=== PATIENT | female | born 1965 | race African-American/Black ===

== ENCOUNTER 2024-02-12 00:47 | Emergency (ER) | payer BC ==
[2024-02-12] MEDS ORDERED: methocarbamoL 500 MG TAB ONE (01:54)
[2024-02-12] MEDS ORDERED: KETOROLAC 30 MG/ML INJ ONE (01:54)
[2024-02-12] MEDS ORDERED: ACETAMINOPHEN 500 MG TAB ONE (01:54)
[2024-02-12 01:59] LABS: Absolute Basophils 0.1 K/uL (0-0.5); Absolute Eosinophils 0.1 K/uL (0-0.5); Absolute Lymphocytes (CBC) 2.3 K/uL (0.7-4.9); Absolute Monocytes 0.7 K/uL (0.1-1.3); Absolute Neutrophil 5.7 K/uL (1.8-8.0); Basophils % 0.7 % (0-1.3); Eosinophils % 1.3 % (0-4.4); Hemoglobin 10.4 g/dL (12.0-15.0); Lymphocytes % 26.2 % (15.3-44.8); MCH 28.5 pg (27.0-35.0); MCHC 33.6 g/dL (32.0-36.0); MCV 84.6 fL (80-100); MPV 7.3 fL (7.6-11.3); Monocytes % 8.2 % (3.3-12.3); Neutrophils % 63.6 % (41.7-73.7); Platelets 348 thou/uL (152-406); RBC Red Blood Cell Count 3.66 M/uL (3.86-4.86); Red Cell Distribution Width 13.8 % (12.1-15.2)
[2024-02-12 02:16] LABS: Anion Gap 7.9 mEq/L (5.0-15.0); Potassium 3.9 mEq/L (3.5-5.1); Troponin High Sensitivity 4.7 pg/mL (<58.9)
--- NOTE | 2024-02-12 02:29 | EDPHYS ---
Physician Documentation [facility] Name: Seble Chavarria Age: 58 yrs Sex: Female : 1965 Arrival Date: 02/12/2024 Time: 00:47 Bed 15 Private MD: ED Physician Sedrick Triana HPI: 02/11 01:08 This 58 yrs old Black Female presents to ER via Unassigned with complaints of Chest ec2 Pain, Neck and Upper Back Pain. 01:08 Patient arrives today for upper chest wall pain as well as neck and back pain. Patient ec2 reportedly has been having symptom onset for several days, worse with movements, states that she suspect is musculoskeletal because she does a lot heavy lifting at work. Patient denies any falls injuries or trauma.. Historical: - Allergies: 01:15 No Known Allergies; pc2 - PMHx: 01:15 Hypertensive disorder; Hypercholesterolemia; pc2 - Immunization history:: Adult Immunizations up to date. - Infectious Disease History:: Denies. - Social history:: Smoking status: Patient denies any tobacco usage or history of. ROS: 01:08 Constitutional: as per hpi ec2 Exam: 01:08 Constitutional: GEN: NAD Head: atraumatic Eyes: EOMI Ears: External ears are ec2 normal. CV: regular rate LUNGS: no respiratory distress ABD: non-distended SKIN: no evidence of rashes MSK: no evidence of trauma, reproducible upper chest wall TTP, reproducible neck and trapezius TTP Vital Signs: 01:10 BP 158 / 87; Pulse 89; Resp 16; Temp 98.3; Pulse Ox 98% on R/A; Weight 73.03 kg; Height pc2 5 ft. 8 in. ; 02:40 BP 153 / 80; Pulse 64; Resp 16; Pulse Ox 100% on R/A; pc2 01:10 Body Mass Index 24.48 (73.03 kg, 172.72 cm) pc2 MDM: 00:54 Patient medically screened. ec2 01:08 Data reviewed: vital signs. ED course: Patient arrives today for evaluation of chest, ec2 back, neck pain. Examination remarkable for reproducible pain. Will obtain cardiac evaluation, treat the patient's symptoms. Differential includes ACS, musculoskeletal pain, muscular spasm . 01:16 ED course: EKG independently reviewed and interpreted by me, shows normal sinus rhythm, ec2 rate of 67, no acute ST segment elevations, intervals are nonconcerning, left bundle branch block noted.. 02:27 ED course: CBC shows slight anemia, metabolic profile reassuring, troponin within ec2 normal ranges. Chest x-ray independently reviewed and interpreted by me, shows no acute intrathoracic process. . 02/11 01:07 Order name: Basic Metabolic Panel; Complete Time: 02:26 ec2 02/11 01:07 Order name: CBC with Diff; Complete Time: 02:26 ec2 02/11 01:07 Order name: Troponin HS; Complete Time: 02:26 ec2 02/11 01:07 Order name: XRAY Chest (1 view) ec2 02/11 01:07 Order name: Cardiac monitoring; Complete Time: :39 ec2 02/11 01:07 Order name: EKG - Nurse/Tech; Complete Time: 01:15 ec2 02/11 01:07 Order name: IV Saline Lock; Complete Time: 01:39 ec2 02/11 01:07 Order name: Labs collected and sent; Complete Time: :39 ec2 02/11 01:07 Order name: O2 Per Protocol; Complete Time: 01:39 ec2 02/11 01:07 Order name: O2 Sat Monitoring; Complete Time: 01:39 ec2 Administered Medications: 02:01 Drug: Ketorolac IVP 15 mg IVP once Route: IVP; Site: right forearm; pc2 02:41 Follow up: Response: No adverse reaction pc2 02:01 Drug: Methocarbamol PO 500 mg PO once Route: PO; pc2 02:41 Follow up: Response: No adverse reaction pc2 02:01 Drug: Acetaminophen PO 1000 mg PO once Route: PO; pc2 02:41 Follow up: Response: No adverse reaction pc2 Disposition Summary: 02/12/24 02:28 Discharge Ordered Notes: Location: Home ec2 Condition: Stable ec2 Diagnosis - Muscle spasm ec2 Followup: ec2 - With: Private Physician - When: - Reason: Re-evaluation by your physician Discharge Instructions: - Discharge Summary Sheet ec2 - Muscle Cramps and Spasms ec2 Forms: - Medication Reconciliation Form ec2 - Antibiotic Education ec2 - Prescription Opioid Use ec2 - Patient Portal Instructions ec2 - Leadership Thank You Letter ec2 Prescriptions: - methocarbamol 500 mg Oral tablet - take 1 tablet ORAL route 4 times per day; 25 tablet; Refills: 0, Product ec2 Selection Permitted Signatures: Dispatcher [employer] EDMS Sedrick Triana MD MD ec2 Melissa Conteh, RN RN pc2 Corrections: (The following items were deleted from the chart) 01:07 01:07 Chest Single View+[email or web address] ordered. EDMS EDMS
--- NOTE | 2024-02-12 02:29 | ER ---
Nurse's Notes [facility] Name: Seble Chavarria Age: 58 yrs Sex: Female : 1965 Arrival Date: 02/12/2024 Time: 00:47 Bed 15 Private MD: Diagnosis: Muscle spasm Presentation: 02/11 01:10 Chief complaint: Patient states: Left sided chest pain, upper back, and neck pain x few pc2 days. 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 01:10 Coronavirus screen: At this time, the client does not indicate any symptoms associated pc2 with coronavirus-19. Ebola Screen: No symptoms or risks identified at this time. Initial Sepsis Screen: Does the patient meet any 2 criteria? No. Patient's initial sepsis screen is negative. Does the patient have a suspected source of infection? No. Patient's initial sepsis screen is negative. Risk Assessment: Do you want to hurt yourself or someone else? Patient reports no desire to harm self or others. Onset of symptoms was January 2024. 01:10 Method Of Arrival: Ambulatory pc2 01:10 Acuity: JESUS 3 pc2 Triage Assessment: 01:15 General: Appears in no apparent distress. comfortable, well groomed, Behavior is calm, pc2 cooperative, appropriate for age. Pain: Complains of pain in back, chest and neck Pain does not radiate. Pain currently is 5 out of 10 on a pain scale. EENT: No signs and/or symptoms were reported regarding the EENT system. Neuro: Level of Consciousness is awake, alert, obeys commands, Oriented to person, place, time, situation. Cardiovascular: Heart tones S1 S2 Capillary refill < 3 seconds Patient's skin is warm and dry. Rhythm is sinus rhythm Chest pain is located in left chest wall is aggravated by activity. Respiratory: Airway is patent Trachea midline Respiratory effort is even, unlabored, Respiratory pattern is regular, symmetrical. GI: Abdomen is round non-distended. : No signs and/or symptoms were reported regarding the genitourinary system. Derm: No signs and/or symptoms reported regarding the dermatologic system. Musculoskeletal: Circulation, motion, and sensation intact. Reports pain in back. Historical: - Allergies: 01:15 No Known Allergies; pc2 - PMHx: :15 Hypertensive disorder; Hypercholesterolemia; pc2 - Immunization history:: Adult Immunizations up to date. - Infectious Disease History:: Denies. - Social history:: Smoking status: Patient denies any tobacco usage or history of. Screenin:41 [facility] ED Fall Risk Assessment (Adult) History of falling in the last 3 months, pc2 including since admission No falls in past 3 months (0 pts) Confusion or Disorientation No (0 pts) Intoxicated or Sedated No (0 pts) Impaired Gait No (0 pts) Mobility Assist Device Used No (0 pt) Altered Elimination No (0 pt) Score/Fall Risk Level 0 - 2 = Low Risk Oriented to surroundings, Maintained a safe environment, Hourly rounding (assess needs \T\ fall precautionary measures) done. Abuse screen: Denies threats or abuse. Denies injuries from another. Nutritional screening: No deficits noted. Tuberculosis screening: No symptoms or risk factors identified. Assessment: 01:15 Pain: Pain began 2-3 days ago. pc2 01:20 Reassessment: see triage. pc2 02:20 Reassessment: Patient appears in no apparent distress at this time. Patient and/or pc2 family updated on plan of care and expected duration. Pain level reassessed. Patient is alert, oriented x 3, equal unlabored respirations, skin warm/dry/pink. Patient states feeling better. Patient states symptoms have improved. Vital Signs: 01:10 BP 158 / 87; Pulse 89; Resp 16; Temp 98.3; Pulse Ox 98% on R/A; Weight 73.03 kg; Height pc2 5 ft. 8 in. ; 02:40 BP 153 / 80; Pulse 64; Resp 16; Pulse Ox 100% on R/A; pc2 01:10 Body Mass Index 24.48 (73.03 kg, 172.72 cm) pc2 ED Course: 00:49 Patient arrived in ED. [id number] 00:51 Sedrick Triana MD is Attending Physician. ec2 01:15 Melissa Conteh, RN is Primary Nurse. pc2 01:15 EKG done, by ED staff. af3 01:15 X-ray(s) taken. pc2 01:18 Client placed on continuous cardiac and pulse oximetry monitoring. NIBP monitoring pc2 applied. 01:20 Arm band placed on left wrist. pc2 01:25 XRAY Chest (1 view) In Process Unspecified. EDMS 01:30 Inserted saline lock: 22 gauge in right forearm, using aseptic technique. Blood pc2 collected. Flushed with 10 mL NS. 01:39 Basic Metabolic Panel Sent. pc2 01:39 CBC with Diff Sent. pc2 01:39 Troponin HS Sent. pc2 01:41 Patient has correct armband on for positive identification. Bed in low position. Call pc2 light in reach. Side rails up X2. Provided Education on: POC and time frame. 01:42 No provider procedures requiring assistance completed. Patient maintains SpO2 pc2 saturation greater than 95% on room air. 01:46 Triage completed. pc2 02:40 IV discontinued, intact, bleeding controlled, No redness/swelling at site. Pressure pc2 dressing applied. Administered Medications: 02:01 Drug: Ketorolac IVP 15 mg IVP once Route: IVP; Site: right forearm; pc2 02:41 Follow up: Response: No adverse reaction pc2 02:01 Drug: Methocarbamol PO 500 mg PO once Route: PO; pc2 02:41 Follow up: Response: No adverse reaction pc2 02:01 Drug: Acetaminophen PO 1000 mg PO once Route: PO; pc2 02:41 Follow up: Response: No adverse reaction pc2 Medication: 01:41 VIS not applicable for this client. pc2 Outcome: 02:28 Discharge ordered by . ec2 02:39 Discharged to home ambulatory, with family, pc2 02:39 Condition: stable 02:39 Discharge instructions given to patient, Instructed on discharge instructions, follow up and referral plans. medication usage, Demonstrated understanding of instructions, follow-up care, medications, 02:40 Prescriptions given X 1, pc2 02:52 Patient left the ED. pc2 Signatures: Dispatcher [employer] EDMargarita Parr [id number] Sedrick Triana MD MD ec2 Melissa Conteh, RN RN pc2 Nadya [email or web address] Corrections: (The following items were deleted from the chart) 01:49 01:10 BP 158 / 87; Pulse 89bpm; Resp 16bpm; Pulse Ox 98% RA; Temp 98.3F; pc2 pc2 02:40 02:39 Discharged to home ambulatory, with family, pc2 pc2
[2024-02-12 03:10] VITALS: TEMP 98.3
[2024-02-12 03:12] VITALS: BP 153/80; O2SAT 100
--- NOTE | 2024-02-12 15:46 | RAD REPORT ---
EXAM DESCRIPTION: RAD - Chest Single View - 02/12/2024 1:23 am CLINICAL HISTORY: Chest pain. COMPARISON: None. TECHNIQUE: XR CHEST 1 VIEW 02/12/2024 1:07 AM CDT FINDINGS: Cardiac silhouette is normal in size. Lungs are clear without consolidation, atelectasis, mass or edema. There is no pleural effusion. There is no pneumothorax. There are no acute osseous fin dings. IMPRESSION: Clear lungs. Electronically signed by: Bhupendra Villanueva MD 02/12/2024 02:43 AM CDT RP Due to temporary technical issues with the PACS/Fluency reporting system, reports are being signed by the in house radiologists without review as a courtesy to insure prompt reporting. The interpreting radiologist is fully responsible for the content of the report.
--- OUTSIDE RECORDS SUMMARY | 2024-02-14 09:09 | XMS REPORT | Continuity of Care Document ---
Author Name Unknown Address [address] [facility] [address] [place] [address] [facility] thconnect Address [address] [facility] [address] [place] [address] Care Team Providers Care Coin Machine Servicer Repairer Name Role Phone MOOSE PRUITT Primary Care Physician Unavailab Linda Benavidez Attending Clinician Unavailabl e EMEKA PRIETO Attending Clinician Unavailable Ashly Kimbrough Attending Clinician [phone] Francine Schuler Attending Clinician [phone] Doctor Unassigned, [place] Attending Clinician U navailable FRANCINE AREVALO Attending Clinician Unavailable [email or web address]_S Attending Clinician UnavailASHLY Ngo Attending Clinician Unavailable Lab, Ang - Db Attending Clinician Unavailable LAVERN ROSA Attending Clinician Unavailable Only, Ang Db Test Attending Clinician UnavailLavern Zhao Attending Clinician [phone] Lab, Adc Fam Pob I Attending Clinician Unavailab Liam Hazel Attending Clinician [phone] LIAM UP Attending Clinician Unavailable Leslie Davis Attending Clinician [phone] Radiology Attending Clinician Unavailable RADIOLOGY Attending Clinician Unavailable [email or web address]_S Admitting Clinician UnavailASHLY Ngo Admitting Clinician Unavailable Payers Payer Name Policy Type Policy Number Effective Date Expirati on Date Source [place] [address] [id number] [facility] Problems Condition Name Condition Details Condition Category Status Onset Date Resolution Date Last Treatment Date Treating Clinician Comments Source Chest pain, unspecifie d type Chest pain, unspecifie d type Disease Active 2022-06 2- 00:00: 00 [facility] Essential hypertensi on Essential hypertensi on Disease Active 11-25 00:00: 00 [facility] Stage 3 chronic kidney disease, unspecifie d whether stage 3a or 3b CKD Stage 3 chronic kidney disease, unspecifie d whether stage 3a or 3b CKD Disease Active 11-25 00:00: 00 [facility] Chronic left shoulder pain Chronic left shoulder pain Disease Active 11-25 00:00: 00 [facility] Hyperchole sterolemia Hyperchole sterolemia Disease Active 11-25 00:00: 00 [facility] HSV infection HSV infection Disease Active 11-25 00:00: 00 [facility] [id number] Kidney lesion, comanche, right Problem [facility] [id number] Pain, joint, shoulder, right Problem [facility] [id number] Pain, joint, shoulder, left Problem [facility] [id number] Cervical pain (neck) Problem [facility] [id number] Complex renal cyst Problem [facility] Allergies, Adverse Reactions, Alerts Allergy Name Allergy Type Status Severity Reaction(s) Onset Date Inactive Date Treating Clinician Comments Source Codeine Propensi ty to adverse reaction s Active Unknown - See comments 2006-06 00:00: 00 "makes me jumpy" [facility] CODEINE DRUG INGREDI Active Unknown-Cmnt 2006-06 00:00: 00 [facility] [id number] Drug allergy Active Unknown [facility] codeine codeine Active Unknown [facility] Social History Social Habit Start Date Stop Date Quantity Comments Source Gender identity [facility] of Tobacco Use [facility] Sex Assigned At [facility] Alcohol intake 2023-05-31 00:00:00 2023-05-31 00:00:00 Current drinker of alcohol (finding) [facility] Exposure to SARS-CoV-2 (event) 2022-11-15 00:00:00 2022-11-25 07:37:00 Not sure [facility] History of Social function 2022-11-25 00:00:00 2022-11-25 00:00:00 [facility] Tobacco use and exposure 2022-11-25 00:00:00 2022-11-25 00:00:00 Smokeless tobacco non-user [facility] Alcohol Comment 2022-11-25 00:00:00 2022-11-25 00:00:00 occasional [facility] Smoking Status Start Date Stop Date Source Unknown if ever smoked [facility] Never Smoker [facility] Medications Ordered Medication Name Filled Medication Name Start Date Stop Date Current Medication? Ordering Clinician Indication Dosage Frequency Signature (SIG) Comments Components Source Meloxicam 7.5 MG Meloxicam 7.5 MG 09-15 00:00: 00 No 1{table t} QD Meloxicam 7.5 MG ATORVASTATI N 20 mg tablet 08-02 00:00: 00 Yes [id number] 20mg TAKE 1 TABLET BY MOUTH AT BEDTIME [facility] tiZANidine 2 mg tablet 2022-06 00:00: 00 Yes [id number] 2mg Take 1 tablet by mouth every 6 (six) hours as needed for Pain (scale 4-6). [facility] flaxseed oil (OMEGA 3 ORAL) 2022-06 13:41: 48 Yes 2{each} Take 2 Each by mouth in the morning. [facility] tiZANidine 2 mg capsule 2022-06 00:00: 00 Yes [id number] 2mg Take 1 capsule by mouth in the morning and 1 capsule at noon and 1 capsule in the evening. [facility] methylPREDN ISolone (MEDROL, TONY,) 4 mg tablets 2022-06 00:00: 00 06-06 05:59 :00 No [id number] Take by mouth SEE-INSTRU CTIONS for 5 days. follow package directions [facility] ketorolac 10 mg tablet 2022-06 00:00: 00 05-31 00:00 :00 No 10mg Take 1 tablet by mouth in the morning and 1 tablet at noon and 1 tablet in the evening. [facility] meloxicam 15 mg tablet 11-25 09:24: 54 11-25 00:00 :00 No Take by mouth daily. [facility] ATENOLOL 50 MG ORAL TAB 11-25 08:56: 34 11-25 00:00 :00 No 1 tab QD [facility] flaxseed oil (OMEGA 3 ORAL) 11-25 08:40: 17 Yes Take by mouth. [facility] TRAMADOL ORAL 11-25 08:37: 00 11-25 00:00 :00 No prn [facility] azelastine 137 mcg (0.1 %) nasal spray 11-25 00:00: 00 Yes [id number] 1{spray } Use 1 [place] in each nostril in the morning and 1 [place] in the evening. Use in each nostril as directed [facility] carvediloL 25 mg tablet 11-25 00:00: 00 Yes [id number] 25mg Take 1 tablet by mouth in the morning and 1 tablet in the evening. Take with meals. [facility] atorvastati n 20 mg tablet 11-25 00:00: 00 08-02 00:00 :00 No [id number] 20mg Take 1 tablet by mouth at bedtime. [facility] carvediloL 25 mg tablet 11-16 00:00: 00 11-25 00:00 :00 No 25mg Take 1 tablet by mouth in the morning and 1 tablet in the evening. Take with meals. [facility] atorvastati n 20 mg tablet 11-02 00:00: 00 11-25 00:00 :00 No TAKE 1 TABLET BY MOUTH DAILY DIRECTED [facility] azithromyci n 250 mg tablet 10-28 00:00: 00 11-25 00:00 :00 No TAKE 2 TABLETS BY MOUTH ONE TIME TODAY THEN 1 TABLET BY MOUTH FOR 4 DAYS [facility] ATENOLOL 50 MG ORAL TAB 2006-06 00:54: 28 Yes 1 tab QD [facility] TRAMADOL ORAL 2006-06 00:54: 28 Yes prn [facility] ATENOLOL 50 MG ORAL TAB 2006-06 18:54: 28 Yes 1 tab QD [facility] TRAMADOL ORAL 2006-06 18:54: 28 Yes prn [facility] TRAMADOL 50 MG ORAL TAB 2006-06 00:00: 00 11-25 00:00 :00 No one po tid prn [facility] Tylenol Tylenol No Tylenol Entresto 24-26 MG Entresto 24-26 MG No 1{table t} QD Entresto 24-26 MG Omeprazole 40 MG Omeprazole 40 MG No QD Omeprazole 40 MG Carvedilol 25 MG Carvedilol 25 MG No 1{table t_with_ food} BID Carvedilol 25 MG Immunizations Ordered Immunization Name Filled Immunization Name Date Status Comments Source Zoster Vaccine Recombinant Unknown Completed [facility] SARS-COV-2 COVID-19 PFIZER VACCINE Unknown Completed [facility] SARS-COV-2 COVID-19 PFIZER VACCINE Unknown Completed [facility] Zoster Vaccine Recombinant Unknown Completed [facility] SARS-COV-2 COVID-19 PFIZER VACCINE Unknown Completed [facility] SARS-COV-2 COVID-19 PFIZER VACCINE Unknown Completed [facility] Zoster Vaccine Recombinant Unknown Completed [facility] SARS-COV-2 COVID-19 PFIZER VACCINE Unknown Completed [facility] SARS-COV-2 COVID-19 PFIZER VACCINE Unknown Completed [facility] Zoster Vaccine Recombinant Unknown Completed [facility] SARS-COV-2 COVID-19 PFIZER VACCINE Unknown Completed [facility] SARS-COV-2 COVID-19 PFIZER VACCINE Unknown Completed [facility] Zoster Vaccine Recombinant Unknown Completed [facility] SARS-COV-2 COVID-19 PFIZER VACCINE Unknown Completed [facility] SARS-COV-2 COVID-19 PFIZER VACCINE Unknown Completed [facility] Zoster Vaccine Recombinant Unknown Completed [facility] SARS-COV-2 COVID-19 PFIZER VACCINE Unknown Completed [facility] SARS-COV-2 COVID-19 PFIZER VACCINE Unknown Completed [facility] Zoster Vaccine Recombinant Unknown Completed [facility] SARS-COV-2 COVID-19 PFIZER VACCINE Unknown Completed [facility] SARS-COV-2 COVID-19 PFIZER VACCINE Unknown Completed [facility] Zoster Vaccine Recombinant Unknown Completed [facility] SARS-COV-2 COVID-19 PFIZER VACCINE Unknown Completed [facility] SARS-COV-2 COVID-19 PFIZER VACCINE Unknown Completed [facility] Zoster Vaccine Recombinant Unknown Completed [facility] SARS-COV-2 COVID-19 PFIZER VACCINE Unknown Completed [facility] SARS-COV-2 COVID-19 PFIZER VACCINE Unknown Completed [facility] Zoster Vaccine Recombinant Unknown Completed [facility] SARS-COV-2 COVID-19 PFIZER VACCINE Unknown Completed [facility] SARS-COV-2 COVID-19 PFIZER VACCINE Unknown Completed [facility] Zoster Vaccine Recombinant Unknown Completed [facility] SARS-COV-2 COVID-19 PFIZER VACCINE Unknown Completed [facility] SARS-COV-2 COVID-19 PFIZER VACCINE Unknown Completed [facility] Vital Signs Vital Name Observation Time Observation Value Comments S ource height 2023-12-06 16:00:00 67 [in_i] [facility]mo [facility] weight 2023-12-06 16:00:00 161.0 [lb_av] Co mmon [facility] temperature 2023-12-06 16:00:00 97.3 [degF] Com mon [facility] bmi 2023-12-06 16:00:00 25.21 kg/m2 Comm on [facility] oximetry 2023-12-06 16:00:00 97 % Commo [facility] respiratory rate 2023-12-06 16:00:00 18 /min Common [facility] blood pressure systolic 2023-12-06 16:00:00 133 mm[Hg] Common [facility] blood pressure diastolic 2023-12-06 16:00:00 69 mm[Hg] [facility] Systolic blood pressure 2023-05-31 19:40:00 151 mm[Hg] [facility] Diastolic blood pressure 2023-05-31 19:40:00 78 mm[Hg] [facility] Heart rate 2023-05-31 19:31:00 82 /min [facility] Res[facility] rate 2023-05-31 19:31:00 18 /min [facility] Body height 2023-05-31 19:31:00 171.5 cm [facility] acute hospital Body weight 2023-05-31 19:31:00 72.984 kg General acute hospital BMI 2023-05-31 19:31:00 24.83 kg/m2 General acute hospital Oxygen saturation in Arterial blood by Pulse oximetry 2023-05-31 19:31:00 98 /min [facility] Respiratory rate 2022-11-25 13:30:00 18 /min [facility] Body height 2022-11-25 13:30:00 171.5 cm General acute hospital Body weight 2022-11-25 13:30:00 70.444 kg General acute hospital BMI 2022-11-25 13:30:00 23.96 kg/m2 General acute hospital Oxygen saturation in Arterial blood by Pulse oximetry 2022-11-25 13:30:00 98 /min [facility] Systolic blood pressure 2022-11-25 13:30:00 131 mm[Hg] [facility] Diastolic blood pressure 2022-11-25 13:30:00 78 mm[Hg] [facility] Heart rate 2022-11-25 13:30:00 75 /min [facility] Body temperature 2022-11-25 13:30:00 36.72 Blanca [facility] Procedures Procedure Date / Time Performed Performing Clinicia n Source PVR 2023-12-06 00:00:00 Common S pirit [facility] XR CHEST 2 2023-05-31 20:38:35 Francine Arevalo [facility] ASSIGNMENT OF BENEFITS 2023-01-08 13:13:54 Docto r Unassigned, [place] [facility] XR CHEST 2 2020-07-02 19:56:28 Requisition, Paper U [facility] Encounters Start Date/Time End Date/Time Encounter Type Admission Type Attending [facility] Facility Care Department Encounter ID Source 2023-12-06 15:45:01 Outpatient Linda Odell STLMLC STLC [id number] [facility] 2024-01-31 09:01:38 2024-01-31 09:01:38 Outpatient SFA SFA [id number] Michael Cortez Maged 2023-12-15 00:00:00 2023-12-15 00:00:00 OFFICE VISIT ESTAB PT LEVEL 4 STLMLC STLMLC [id number] [facility] 2023-12-06 00:00:00 2023-12-06 00:00:00 OFFICE VISIT NEW PT LEVEL 3 STLMLC STLMLC [id number] [facility] 2023-11-05 10:09:47 2023-11-05 10:09:47 Outpatient SFA SFA [id number] Michael Cortez Maged 2023-09-13 10:30:24 2023-09-13 10:30:24 Outpatient SFA SFA [id number] Michael Cortez Maged 2023-08-02 00:00:00 2023-08-02 00:00:00 Refill Ashly Dsouza [facility] 1.2.840.114 350.1.13.10 4.2.7.2.686 [id number] [facility] 2023-06-09 00:00:00 2023-06-09 00:00:00 Telephone Francine Arevalo [facility] [id number] 350.1.13.10 4.2.7.2.686 [id number] [facility] 2023-06-09 00:00:00 2023-06-09 00:00:00 Refill Francine Arevalo [facility] 1.2840.114 350.1.13.10 4.2.7.2.686 [id number] [facility] 2023-06-02 00:00:00 2023-06-02 00:00:00 Telephone Francine Arevalo [facility] 1.2840.114 350.1.13.10 4.2.7.2.686 [id number] [facility] 2023-06-01 00:00:00 2023-06-01 00:00:00 Patient Secure Msg Doctor Unassigned, [place] [facility] 1.20.114 350.1.13.10 4.2.7.2.686 [id number] [facility] 2023-06-01 00:00:00 2023-06-01 00:00:00 [facility]ill [facility] 1.2840.114 350.1.13.10 4.2.7.2.686 [id number] [facility] 2023-06-01 00:00:00 2023-06-01 00:00:00 Telephone Francine Arevalo [facility] 1.2.840.114 350.1.13.10 4.2.7.2.686 [id number] [facility] 2023-05-31 14:04:21 2023-05-31 23:59:00 Hospital Encounter Francine Arevalo [facility] 1..114 350.1.13.10 4.2.7.2.686 [id number] [facility] 2023-05-31 13:30:00 2023-05-31 14:04:46 Outpatient R FRANCINE AREVALO [facility] [id number] [facility] 2023-05-31 13:30:00 2023-05-31 14:04:46 Office Visit Francine Arevalo [facility] 1.114 350.1.13.10 4.2.7.2.686 [id number] [facility] 2023-04-27 00:00:00 2023-04-27 00:00:00 Outpatient GC_GCBZW_Ka diyala_S PRIV PRIV [id number] [facility] 2023-01-08 08:16:42 2023-01-08 23:59:00 Outpatient R ASHLY DSOUZA [facility] [id number] [facility] 2023-01-08 08:16:42 2023-01-08 23:59:00 Hospital Encounter Ashly Dsouza [facility] 1.114 350.1.13.10 4.2.7.2.686 [id number] [facility] 2023-01-08 00:00:00 2023-01-08 00:00:00 Orders Only Doctor Unassigned, [place] [facility] 1.0.114 350.1.13.10 4.2.7.2.686 [id number] [facility] 2022-11-26 00:00:00 2022-11-26 00:00:00 Telephone [facility] 1.2.840.114 350.1.13.10 4.2.7.2.686 [id number] [facility] 2022-11-25 09:00:00 2022-11-25 09:44:56 Financial Data Analyst Visit Lab, Ang - Db Ashly Dsouza [facility] 1.840.114 350.1.13.10 4.2.7.2.686 [id number] [facility] 2022-11-25 08:00:00 2022-11-25 08:52:25 Outpatient R ASHLY DSOUZA [facility] [id number] [facility] 2022-11-25 08:00:00 2022-11-25 08:52:25 Office Visit Ash[facility] 1.840.114 350.1.13.10 4.2.7.2.686 [id number] [facility] 2022-11-02 16:08:32 2022-11-02 16:08:32 Outpatient SFA [facility] [id number] Michael Cortez Maged 2021-07-03 14:00:00 2021-07-03 14:32:[address] [facility] [id number] [facility] 2021-07-03 14:00:00 2021-07-03 14:15:00 Laboratory Only Only, Ang Db Test Lavern Rosa [facility] 1.2.840.114 350.1.13.10 4.2.7.2.686 [id number] [facility] 2021-01-30 13:38:47 2021-01-30 13:58:47 Laboratory Only Lab, Adc Fam Pob Liam Richter [facility] Office Building [address] 1.2.840.114 350.1.13.10 4.2.7.2.686 [id number] [facility] 2021-01-30 13:40:00 2021-01-30 13:40:00 Outpatient R LIAM UP [facility] [id number] [facility] 2020-08-30 13:20:00 2020-08-30 13:20:[address] [facility] [id number] [facility] 2020-08-30 12:53:39 2020-08-30 13:13:39 Laboratory Only Lab, [facility] Fam Pieterb Leslie Sanchez [facility] Office [facility] 1.2.840.114 350.1.13.10 4.2.7.2.686 [id number] [facility] 2020-08-30 00:00:00 2020-08-30 00:00:00 Letter (Out) Doctor Unassigned, [place] [facility] 1.2.840.114 350.1.13.10 4.2.7.2.686 [id number] [facility] 2020-07-02 13:36:06 2020-07-02 23:59:00 Hospital Encounter Radiology [facility] 1.2.840.114 350.1.13.10 4.2.7.2.686 [id number] [facility] 2020-07-02 00:00:00 2020-07-02 00:00:[address] [facility] [id number] [facility] Results Test Description Test Time Test Comments Results Resul t Comments Source XR CHEST 2 VW 5 20:04:55 HISTORY: Cough. TECHNIQUE: PA and lateral views of the chest are obtained. FINDINGS: No acute pneumonia detected. No pneumothorax or pleural effusionor pulmonary congestion. Cardiothoracic ratio of approximately 11.7/26.4 cmis consistent with normal cardiac size. CONCLUSIONS: No signs of acute cardiopulmonary disease.[facility], Radiant Results Inft User - 07/02/2020 2:06 PM CSTHISTORY: Cough.TECHNIQUE: PA and lateral views of the chest are obtained.FINDINGS: No acute pneumonia detected. No pneumothorax or pleural effusionor pulmonary congestion. Cardiothoracic ratio of approximately 11.7/26.4 cmis consistent with normal cardiac size.CONCLUSIONS: No signs of acute cardiopulmonary disease. [facility] Notes Date/Time Note Provider Source 2023-08-02 11:54:31 Images from the original note were not included. Notes: 11/25/22 Last Refilled: [id number] - [place], [place] - [address] [facility] [email or web address] Recent Visits Date Type Provider Dept 05/31/23 Office Visit Francine Arevalo FNP Ang-[facility] 11/25/22 Office Visit Ashly Dsouza PA Ang-Db [facility] Showing recent visits within past 540 days with a meds authorizing provider and meeting all other requirements Future Appointments No visits were found meeting these conditions. Showing future appointments within next 150 days with a meds authorizing provider and meeting all other requirements Name from pharmacy: ATORVASTATIN 20MG TABLETS Will file in chart as: ATORVASTATIN 20 mg tablet Sig: Take 1 tablet by mouth at bedtime. Original sig: TAKE 1 TABLET BY MOUTH AT BEDTIME Disp: 90 tablet Refills: 1 (Pharmacy requested: Not specified) Start: 08/02/2023 Class: eRX For: Hypercholesterolemia Last ordered: 8 months ago (11/25/2022) by SILVANA Javed Last refill: 05/03/2023 Rx #: [id number]|0|1 Cardiovascular: Antilipid - HMG-CoA Reductase Inhibitors Gxiypf3608/02/2023 07:00 AM Protocol Details Valid encounter within last 12 months Total Cholesterol within 360 days LDL within 360 days HDL within 360 days Triglycerides within 360 days AST in normal range and within 360 days ALT in normal range and within 360 days To be filled at: [id number] - [place], [place] - [address] [facility] [email or web address] [address]
== END 2024-02-12 02:52 | disposition home or self-care (01) ==
LOC: ER 00:47
DX: M62.838 Other muscle spasm (principal)
CPT/HCPCS: 36415; 71045; 80048; 84484; 85025; 93005; 96374; 99285

== ENCOUNTER 2024-11-06 12:20 | Day surgery (SDC) | payer BC ==
[2024-11-06 13:08] LABS: Absolute Basophils 0.1 K/uL (0-0.5); Absolute Eosinophils 0.1 K/uL (0-0.5); Absolute Lymphocytes (CBC) 1.6 K/uL (0.7-4.9); Absolute Monocytes 0.4 K/uL (0.1-1.3); Absolute Neutrophil 4.1 K/uL (1.8-8.0); Basophils % 1.1 % (0-1.3); Eosinophils % 1.7 % (0-4.4); Hematocrit 35.1 % (36.0-45.0); Hemoglobin 11.9 g/dL (12.0-15.0); MCH 28.2 pg (27.0-35.0); MCHC 33.8 g/dL (32.0-36.0); MCV 83.3 fL (80-100); MPV 7.9 fL (7.6-11.3); Monocytes % 6.6 % (3.3-12.3); Neutrophils % 65.6 % (41.7-73.7); Platelets 323 thou/uL (152-406); RBC Red Blood Cell Count 4.21 M/uL (3.86-4.86); Red Cell Distribution Width 14.3 % (12.1-15.2)
[2024-11-06] MEDS: Ringers Lactate 1,000 ML IV ONE (13:10)
[2024-11-06] MEDS ORDERED: LIDOCAINE 1% MPF 5 ML VIAL ONE (14:05)
[2024-11-06] MEDS ORDERED: propofoL 200 MG/20 ML VIAL IV ONE (14:05)
[2024-11-06 15:07] VITALS: BP 148/78; TEMP 97; O2SAT 100
== END 2024-11-06 15:10 | disposition home or self-care (01) ==
LOC: OR 12:20
PROVIDERS: ATTEND Internal Medicine Gastroenterology
PROC: 0DB78ZX Excision of Stomach, Pylorus, Via Natural or Artificial Opening Endoscopic, Diagnostic (ICD-10-PCS; 2024-11-06)
PROC: 0DB68ZX Excision of Stomach, Via Natural or Artificial Opening Endoscopic, Diagnostic (ICD-10-PCS; principal; 2024-11-06 14:30)
DX: K21.9 Gastro-esophageal reflux disease without esophagitis (principal); K31.A0 Gastric intestinal metaplasia, unspecified; K44.9 Diaphragmatic hernia without obstruction or gangrene; K29.50 Unspecified chronic gastritis without bleeding; Z80.0 Family history of malignant neoplasm of digestive organs
CPT/HCPCS: 43239; 85025; 80048; 36415; 88312; 82947; 88305; J2704; J2003; J7120